=== PATIENT | female | born 2000 | race Caucasian/White ===

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

== ENCOUNTER → 2020-02-22 | Outpatient (CLI) | payer OTHER ==
[2020-02-22 15:50] LABS: BASOPHILS % (AUTO) 1.2 % (0.0-5.0); EOSINOPHILS % (AUTO) 5.6 % (0.0-8.0); HEMATOCRIT 42.1 % (36-48); LYMPHOCYTES % (AUTO) 29.5 % (21.0-51.0); MEAN CORPUSCULAR HEMOGLOBIN 32.6 pg (27.0-33.0); MEAN CORPUSCULAR HGB CONC 33.3 g/dL (32.0-36.0); MEAN CORPUSCULAR VOLUME 97.9 fL (80-100); MONOCYTES % (AUTO) 9.2 % (3.0-13.0); NEUTROPHILS % (AUTO) 54.4 % (40.0-77.0); PLATELET COUNT (AUTO) 287 K/uL (130-400); RED CELL DISTRIBUTION WIDTH 12.2 % (11.0-15.5); WHITE BLOOD COUNT (AUTO) 6.8 K/uL (4.8-10.8)
[2020-02-22 15:57] LABS: AMPHET/METH SCREEN,URINE NEGATIVE (NEGATIVE); BARBITURATE SCREEN, URINE NEGATIVE (NEGATIVE); BENZODIAZEPINES SCREEN,URINE NEGATIVE (NEGATIVE); CANNABINOID SCREEN,URINE NEGATIVE (NEGATIVE); COCAINE SCREEN,URINE NEGATIVE (NEGATIVE); OPIATE SCREEN,URINE NEGATIVE (NEGATIVE); PHENCYCLIDINE SCREEN,URINE NEGATIVE (NEGATIVE)
[2020-02-22 16:04] LABS: ALBUMIN 4.6 g/dL (3.5-5.0); BILIRUBIN,TOTAL 0.6 mg/dL (0.2-1.0); CREATININE 0.8 mg/dL (0.5-1.5); POTASSIUM 3.6 mmol/L (3.5-5.1); TOTAL PROTEIN, SERUM 7.8 g/dL (6.0-8.3)
== END | disposition home or self-care (01) ==
LOC: LAB 15:11
PROVIDERS: ATTEND Family Medicine
DX: Z51.81 Encounter for therapeutic drug level monitoring (principal); Z13.220 Encounter for screening for lipoid disorders; R53.83 Other fatigue; F90.0 Attention-deficit hyperactivity disorder, predominantly inattentive type
CPT/HCPCS: 36415; 80053; 80061; 80305; 85025

== ENCOUNTER → 2020-03-23 | Outpatient (CLI) | payer OTHER | END | disposition home or self-care (01) | LOC: RAH 13:24 | PROVIDERS: ATTEND Family Medicine | DX: N63.11 Unspecified lump in the right breast, upper outer quadrant (principal) | CPT/HCPCS: 76641 ==

== ENCOUNTER 2020-04-20 08:40 | Day surgery (SDC) | payer OTHER ==
[2020-04-20] VITALS (12 sets, daily range): BP systolic 83–101; BP diastolic 48–62
[2020-04-20] MEDS ORDERED: FENTANYL CITRATE PF 50 MCG/1 ML 2ML VIAL ONE (11:04)
[2020-04-20] MEDS ORDERED: MIDAZOLAM HCL 1 MG/ML 2ML VIAL ONE (11:04)
--- NOTE | 2020-04-20 11:25 | NUR ---
RIGHT ANTECUBITAL PIV START PT LAYING IN BED, AAOX 3, STABLE, IN HOSPITAL GOWN, BP CUFF ON REGISTERED BP 107/74, RESPIRATIONS 20/MIN. O2 @ 4 LNC. O2 SAT MONITOR ON 100%, HR 69/MIN. INFORMED PATIENT THAT I'D BE STARTING HER PIV FOR THE MODERATE SEDATION PORTION OF THE EXAM. PT VERBALIZED UNDERSTANDING AND ASKED TO TAKE A MINUTE TO RELAX AND WRAP HER MIND AROUND THE SQUEEZING PART OF THE IV START. ONCE PATIENT AGREED TO HAVING THE PIV STARTED, USING ASEPTIC TECHNIQUE AND STERILE SUPPLIES, STARTED PIV TO THE RIGHT ANTECUBITAL X 1 STICK. NOTED PATIENT TURNED PALE, EYES ROLLING BACK, O2 SATS NOTED 84%, HR 40/MIN, BP 68/41. PLACED COLD COMPRESSED ON PATIENTS FOREHEAD AND MAINTAINED PATIENT TALKING BUT C/O NAUSEA, WANTING TO THROW UP AND SHE FEELS SICK NOTED TO BE LETHARGIC. AFTER 15 MIN OF TALKING TO PATIENT BP 99/61, HR 62/MIN, O2 SATS 99%, RESPIRATIONS 16/MIN. PT ASKING FOR HER DAD. CALLED PATIENT'S FATHER INTO THE ROOM. CALLED AND INFORMED DR. HOLT REGARDING STATUS OF PATIENT.
--- NOTE | 2020-04-20 11:40 | NUR ---
US GUIDED BIOPSY OF RIGHT BREAST NODULE PROCEDURE PERFORMED BY DR. HOLT. PUNCTURE SITE RIGHT INFERIOR BREAST AND PATIENT TOLERATED PROCEDURE WELL. SPECIMEN X 3 COLLECTED AND SENT TO LAB. TISSUE MARKER DEPLOYED TO BIOPSY SITE. END OF PROCEDURE AT 1210. BIOPSY NEEDLE REMOVED AND DRESSING APPLIED. NO BLEEDING NOTED. REPORT GIVEN TO KI KULKARNI RN AND PATIENT TRANSPORTED TO DAY PATIENT VIA STRETCHER. PT STABLE, DROWSY BUT AROUSED DURING TRANSPORT, O X 3 WITH NO C/O PAIN.
--- NOTE | 2020-04-20 12:45 | NUR ---
Pt received Pt was received from radiology via stretcher accompanied by Thor Stokes RN. Pt awake but drowsy. Able to respond to command. Has bandaid dressing to right breast area. Denies any discomfort. Family member at bedside. Call light within reach.
--- NOTE | 2020-04-20 13:35 | NUR ---
Mammogram Pt awake and alert. Taken to mammogram as ordered via w/c.
--- NOTE | 2020-04-20 14:55 | NUR ---
D/C Pt prepared for discharge. Denies any c/o. Stepfather at bedside. Verbal discharge instructions given. Concerns addressed. Pt was then taken out of facility via w/c to private vehicle.
== END 2020-04-20 15:05 ==
LOC: DAH 08:40
PROVIDERS: ATTEND Family Medicine
DX: N60.01 Solitary cyst of right breast (principal); F90.9 Attention-deficit hyperactivity disorder, unspecified type; J45.909 Unspecified asthma, uncomplicated
CPT/HCPCS: 19083; 77065; A4215 ×3; J2250; J3010; 99152; 99153

== ENCOUNTER 2020-06-26 09:48 | Day surgery (SDC) | payer OTHER ==
[2020-06-19 10:28] LABS: BASOPHILS % (AUTO) 1.4 % (0.0-5.0); EOSINOPHILS % (AUTO) 0.7 % (0.0-8.0); MEAN CORPUSCULAR HEMOGLOBIN 32.6 pg (27.0-33.0); MEAN CORPUSCULAR VOLUME 98.9 fL (80-100); MONOCYTES % (AUTO) 10.5 % (3.0-13.0); NEUTROPHILS % (AUTO) 58.2 % (40.0-77.0); PLATELET COUNT (AUTO) 283 K/uL (130-400); RED BLOOD CELL COUNT(AUTO) 4.45 MIL/uL (4.00-5.50); RED CELL DISTRIBUTION WIDTH 11.9 % (11.0-15.5); WHITE BLOOD COUNT (AUTO) 4.2 K/uL (4.8-10.8)
[2020-06-19 10:34] LABS: CREATININE 0.7 mg/dL (0.5-1.5); POTASSIUM 3.8 mmol/L (3.5-5.1)
[2020-06-19 10:42] LABS: INR 0.97 (0.85-1.15); PARTIAL THROMBOPLASTIN TIME 26.7 SEC (26.3-35.5); PROTHROMBIN TIME 10.5 SEC (9.6-11.6)
[2020-06-25 11:25] VITALS: BP 115/69
[2020-06-26] VITALS (23 sets, daily range): BP systolic 102–117; BP diastolic 58–75
[~2020-06-26] VITALS: Ht 162.6 cm; Wt 53.2 kg
[~2020-06-26 09:48] MED LIST: CEFAZOLIN SODIUM 1 GM VIAL IVP SCH; LISD20CA PO
[2020-06-26] MEDS ORDERED: MIDAZOLAM HCL SYRUP 10 MG/5 ML 5ML BOTTLE ONE (10:12)
[2020-06-26] MEDS ORDERED: LACTATED RINGERS 1000ML 1,000 ML IV ONE (10:28)
--- NOTE | 2020-06-26 10:40 | NUR ---
Med adm. Administered Versed 10mg po as per order. Pt denies any allergies. Pt tolerated well. Parents at bedside. Monitors in place.
--- NOTE | 2020-06-26 11:55 | NUR ---
U/S GUIDED RIGHT BREAST NEEDLE LOCALIZATION PROCEDURE PERFORMED BY DR. GODDARD. LOCALIZATION WIRE PUNCTURE SITE 6 O'CLOCK RIGHT BREAST AND PATIENT TOLERATED PROCEDURE WELL. END OF PROCEDURE AT 1205. NEEDLE REMOVED AND WIRE LEFT IN PLACE, DRESSING APPLIED. NO BLEEDING NOTED. PATIENT TAKEN FOR RIGHT BREAST MAMMOGRAM BY JAVON MAMMO TECH. REPORT GIVEN TO ABRAHAM MONAE AND PATIENT TRANSPORTED TO [facility] RM 4 VIA STRETCHER. PT NOTED TO BE DROWSY, AAO X 3 WITH NO C/O PAIN.
[2020-06-26] MEDS ORDERED: SCOPOLAMINE HYDROBROMIDE 1 EACH ADH..PATCH TD SCH (14:30)
[2020-06-26] MEDS ORDERED: MIDAZOLAM HCL 1 MG/ML 2ML VIAL ONE (15:02)
[2020-06-26] MEDS ORDERED: GLYCOPYRROLATE 1 MG/5 ML SYRINGE ONE (15:02)
[2020-06-26] MEDS ORDERED: ROCURONIUM 10MG/1ML SYR 10 MG/ML ML ONE (15:03)
[2020-06-26] MEDS ORDERED: FENTANYL CITRATE PF 50 MCG/1 ML 2ML VIAL ONE (15:03)
[2020-06-26] MEDS ORDERED: PROPOFOL 10 MG/ML 20ML VIAL IV ONE (15:03)
[2020-06-26] MEDS ORDERED: ONDANSETRON HCL 4 MG/2 ML VIAL ONE (15:24)
[2020-06-26] MEDS ORDERED: DEXAMETHASONE SOD PHOSPHATE 10MG/ML 1ML VIAL ONE (15:24)
[2020-06-26] MEDS ORDERED: BUPIVACAINE/PF 0.25% 10ML VIAL IJ ONE (15:35)
[2020-06-26] MEDS ORDERED: BUPIVACAINE/PF 0.5% 30ML VIAL ONE (15:35)
[2020-06-26] MEDS ORDERED: NEOSTIGMINE 5MG/5ML SYR IV ONE (16:25)
[2020-06-26] MEDS ORDERED: MEPERIDINE-PF 25 MG/ML SYG ONE (17:25)
--- NOTE | 2020-06-26 18:30 | NUR ---
Parents assisted pt in getting dressed. Pt discharged home, tolerating fluids, denies any nausea. Parents in the medical profession and acknowledge understanding of the necessary care of the pt. Prescription for pain medication given to mother. Pt reminded to take it slow, as pt appears to be drowsy, but ambulated well from stretcher to bed. Parents and pt report no further questions at this time.
== END 2020-06-26 18:30 | disposition home or self-care (01) ==
LOC: DAH 09:48
PROVIDERS: ATTEND Surgery
DX: D24.1 Benign neoplasm of right breast (principal); Z20.828 Contact with and (suspected) exposure to other viral communicable diseases; Z79.01 Long term (current) use of anticoagulants; Z79.899 Other long term (current) drug therapy
CPT/HCPCS: 19285; 19301; 36415; 76098; 77065; 80048; 84703; 85025; 85610; 85730; A4215; A4221; A4222; A4223; A4663; A6260; A6447; C9803; J0690; J1100; J2175; J2250; J2405; J2704; J2710; J3010; J3490 ×2; J7120 ×2; U0003

== ENCOUNTER → 2021-07-02 | Outpatient (CLI) | payer OTHER ==
[~2021-07-02] MED LIST changes: -CEFAZOLIN SODIUM 1 GM VIAL IVP SCH
[2021-07-02 10:41] LABS: EOSINOPHILS % (AUTO) 5.5 % (0.0-8.0); HEMATOCRIT 41.7 % (36-48); LYMPHOCYTES % (AUTO) 29.5 % (21.0-51.0); MEAN CORPUSCULAR HEMOGLOBIN 32.8 pg (27.0-33.0); MEAN CORPUSCULAR HGB CONC 33.3 g/dL (32.0-36.0); MEAN CORPUSCULAR VOLUME 98.3 fL (80-100); MONOCYTES % (AUTO) 8.8 % (3.0-13.0); NEUTROPHILS % (AUTO) 55.1 % (40.0-77.0); PLATELET COUNT (AUTO) 274 K/uL (130-400); RED BLOOD CELL COUNT(AUTO) 4.24 MIL/uL (4.00-5.50); WHITE BLOOD COUNT (AUTO) 6.9 K/uL (4.8-10.8)
[2021-07-02 10:58] LABS: ALBUMIN 4.3 g/dL (3.5-5.0); BILIRUBIN,TOTAL 0.6 mg/dL (0.2-1.0); CREATININE 0.8 mg/dL (0.5-1.5); POTASSIUM 4.5 mmol/L (3.5-5.1); TOTAL PROTEIN, SERUM 7.1 g/dL (6.0-8.3)
== END | disposition home or self-care (01) ==
LOC: LAB 09:34
PROVIDERS: ATTEND Family Medicine
DX: R53.83 Other fatigue (principal)
CPT/HCPCS: 36415; 80053; 80061; 85025

== ENCOUNTER → 2023-05-08 | Outpatient (CLI) | payer OTHER ==
[2023-05-08 09:19] LABS: BASOPHILS # (AUTO) 0.06 K/uL (0.00-0.20); BASOPHILS % (AUTO) 0.9 % (0.0-5.0); EOSINOPHILS # (AUTO) 0.07 K/uL (0.00-0.70); EOSINOPHILS % (AUTO) 1.1 % (0.0-8.0); HEMATOCRIT 41.7 % (36-48); IMMATURE GRANULOCYTE ABSOLUTE 0.01 K/uL (0-1); LYMPHOCYTES # (AUTO) 2.5 K/uL (1.0-4.8); LYMPHOCYTES % (AUTO) 38.6 % (21.0-51.0); MEAN CORPUSCULAR HEMOGLOBIN 33.2 pg (27.0-33.0); MEAN CORPUSCULAR HGB CONC 33.8 g/dL (32.0-36.0); MEAN CORPUSCULAR VOLUME 98.1 fL (79-99); MONOCYTES # (AUTO) 0.5 K/uL (0.1-1.0); MONOCYTES % (AUTO) 8.2 % (3.0-13.0); NEUTROPHILS # (AUTO) 3.3 K/uL (1.8-7.7); PLATELET COUNT (AUTO) 331 K/uL (130-400); RED BLOOD CELL COUNT(AUTO) 4.25 MIL/uL (4.00-5.50); RED CELL DISTRIBUTION WIDTH 12.2 % (11.0-15.5); WHITE BLOOD COUNT (AUTO) 6.4 K/uL (4.8-10.8)
[2023-05-08 09:33] LABS: ALBUMIN 4.2 g/dL (3.5-5.0); BILIRUBIN,TOTAL 0.5 mg/dL (0.2-1.0); CREATININE 0.8 mg/dL (0.5-1.5); POTASSIUM 3.8 mmol/L (3.5-5.1); TOTAL PROTEIN, SERUM 7.7 g/dL (6.0-8.3)
== END | disposition home or self-care (01) ==
LOC: LAB 08:57
PROVIDERS: ATTEND Family Medicine
DX: Z13.89 Encounter for screening for other disorder (principal); R53.83 Other fatigue; Z83.42 Family history of familial hypercholesterolemia
CPT/HCPCS: 36415; 80053; 80061; 85025